=== PATIENT | male | born 1985 | race Caucasian/White ===

== ENCOUNTER 2020-01-01 01:26 | Day surgery (SDC) | payer OTHER, SELFPAY ==
[2019-12-16 10:39] VITALS: BMI 24.8
[2020-01-01] VITALS (7 sets, daily range): BP systolic 109–132; BP diastolic 54–87; PULSE 74–95; RESP 12–18; TEMP 36.1–36.5; O2SAT 98–100
--- NOTE | 2020-01-01 12:17 | WPDANESEPPF ---
Anes - Initial Pre Proc Eval Procedure: Operation Date: 01/01/20 13:30 Proposed Procedures p Excision and CO2 Laser Penile Condyloma - Kenji Mckeon MD Date/Time: 01/01/20 12:17 Surgeon: Kenji Mckeon MD Pre Op Diagnosis: Penile Condyloma Patient Data Age: 34 Gender: M Height: 5 ft 6 in Weight: 69.85 kg Allergies Allergy/AdvReac Type Severity Reaction Status Date / Time No Known Allergies Allergy Verified 12/16/19 10:40 Home Medications Medication Instructions Recorded Confirmed Type No Home Medications 12/16/19 12/16/19 History Patient hx anesthesia problems: none Family hx anesthesia problems: none Anes - Eval Final PreProcedure Day of Procedure 01/01/20 12:17 Patient weight: normal Heart: regular rate and rhythm Lungs: clear to auscultation Airway: Mallampati scale class II Neurological: alert and oriented Last oral intake: >/= 8 hours ASA classification: I Emergent: no Anesthetic plan: proceed Anesthesia type and monitoring: general LMA and standard monitoring Informed Consent: The patient's anesthetic plan and its attendant risks and benefits were discussed with the patient/family/POA. Questions were solicited and answers provided to the satisfaction of the patient/family/POA.
[2020-01-01] MEDS: LACTATED RINGERS 1,000 ML 30 ML IV CONT ×2 (12:30→16:23)
--- NOTE | 2020-01-01 12:52 | WPDHPUPDATE1 ---
History and Physical Update Update Date/Time: 01/01/20 12:52 History and Physical has been reviewed, including an updated exam of the patient. There are NO changes in the patient's condition. Risks, benefits, and alternatives have been discussed and questions answered. Patient agrees to proceed with procedure.
[2020-01-01] MEDS: ceFAZolin 2 GM/D5W 50 ML 2 GM/50 ML BAG IVPB (15:03)
--- NOTE | 2020-01-01 19:42 | OP_ITS ---
DATE OF PROCEDURE: 01/01/2020 POSTOPERATIVE DIAGNOSIS: Extensive penile and suprapubic condyloma. POSTOPERATIVE DIAGNOSIS: Extensive penile and suprapubic condyloma. PROCEDURE PERFORMED: Excision and CO2 laser of condyloma. INDICATION OF PROCEDURE: The patient is a very pleasant gentleman. He presented to the office with diagnosis of condyloma and he was found to have extensive disease with over 10 cm of total condyloma covering the shaft of the penis as well as the suprapubic area. Risks and alternatives discussed with the patient. Patient agreed to proceed with excision and lasering of condyloma. He understands risk of procedure including but not limited to, infection, bleeding, pain, injury to surrounding structures, recurrence, does have special cosmetic result, and need for additional operations, and complications from anesthesia. He agrees to proceed. DESCRIPTION OF PROCEDURE: Informed consent was obtained, the patient was taken to the operating room, given preoperative IV antibiotics. He was induced anesthesia. He was prepped and draped in a sterile fashion. We began with excision of the 3 largest lesions, each approximately 3 cm in size in the suprapubic and right lateral base of the penis. These were sharply excised and then using the CO2 laser, the edges and base of the excision site were cauterized, these pieces were sent to specimen. We then focused the laser on multiple other areas along the inferior and the left side of the penis including 3 lesions in the left side of the penis measuring approximately 2 cm each that were flatter than the other lesions. These lesions were destroyed with the CO2 laser. Once all area was completely debrided with the CO2 laser, we closed the 3 largest lesions that were excised with a deeper layer 3-0 Vicryl suture and a 4-0 chromic skin layer with interrupted sutures. We then reapproximated with 4-0 chromic, the left lateral-sided lesions with interrupted 4-0 chromic lesions. There was one area in the left mid shaft of the penis, though we did not reapproximate as it appeared to me that if we attempted to bring the edges of skin together this would cause significant tension to the skin. We again inspected carefully, there were no residual condyloma. Of note, this was the extensive disease, with multiple sites of condyloma as well as the size of the lesions which required extra surgical planning as well as complex reconstruction. The patient then had antibiotic ointment placed over the entire shaft of the penis and suprapubic area. Gauze dressing was placed in the scrotal portion, support was applied. The patient was awakened and taken to the recovery room in stable condition. FLUIDS: Per anesthesia. COMPLICATION: None. ESTIMATED BLOOD LOSS: Minimal. FOLLOWUP: The patient will follow up in the office in 2-4 weeks for a wound check. D I MT: Leandro SOLANO
== END 2020-01-01 17:47 | disposition home or self-care (01) ==
PROVIDERS: PCP Physician Assistant; Visit Provider Urology
PROC: (CPT 54065; principal; 2020-01-01 13:30)
DX: A63.0 Anogenital (venereal) warts (principal)
CPT/HCPCS: 54065; 88305; A9270; J0131; J0690; J1100; J2250; J2405; J2704; J3010; J7120

== ENCOUNTER 2024-08-12 15:43 | Emergency (ER) | payer OTHER, SELFPAY ==
[2024-08-12 15:52] VITALS: BP 130/79; PULSE 99; RESP 16; TEMP 37.2; O2SAT 97
--- NOTE | 2024-08-12 15:57 | ED.URI ---
HPI - URI/Sore Throat General Chief Complaint: Upper Respiratory Infection Stated Complaint: cough Time Seen by Provider: 08/12/24 15:58 Source: patient and RN notes reviewed Mode of arrival: ambulatory Limitations: no limitations History of Present Illness HPI Narrative: 39-year-old male presents concern for 2 week history of cough. Reports chest discomfort with coughing, he cough has gotten worse the last couple of days. He reports using cough drops. MD elicited complaint: cough and sore throat Related Data Allergies Allergy/AdvReac Type Severity Reaction Status Date / Time No Known Allergies Allergy Verified 08/12/24 15:57 Review of Systems Review of Systems: CONSTITUTIONAL: Denies malaise, chills, sweats, or fever. EYES: Denies visual changes, redness, or discharge. ENT: Denies rhinorrhea, congestion, sinus pain, otalgia and sore throat. CARDIOVASCULAR: Denies chest pain, palpitations, or edema. RESPIRATORY: Reports cough, chest congestion. Denies dyspnea. GASTROINTESTINAL: Denies abdominal pain, nausea, vomiting, diarrhea SKIN: Denies rash or itching. MUSCULOSKELETAL: Denies myalgia. NEUROLOGIC: Denies headache. All systems reviewed & are unremarkable except as noted in HPI and below PMFSH Family History Family History (System 02/24/21 @ 13:40 by Jayy Cintron) Mother Family history of sleep apnea Comments At time of signature, agree with nursing past medical, surgical, social and family history. There is no relevant family history pertinent to the presenting complaint Exam Narrative: GENERAL: Well-appearing, well-nourished, and in no acute distress. HEAD: Normocephalic EYES: PERRLA, conjunctivae clear ENT: Nares clear, turbinates edematous and erythematous, clear discharge. Mucous membranes moist. TM pearly avitia with dull light reflex bilaterally; no tragal tenderness. Oropharynx not erythematous without lesions. Tonsils not enlarged and without exudate, no drooling, no hoarseness, no trismus, uvula midline. NECK: Supple. No lymphadenopathy CHEST: Clear to auscultation, breath sounds equal. No wheezing, rhonchi, rales, or stridor. No respiratory distress, speaks in full sentences. HEART: Regular rate and rhythm. No murmur heard. SKIN: Warm, dry, no rash. NEURO: Alert and oriented x3. PSYCH: Normal mood and affect Course Course Emergency Course: Patient is aware of diagnosis, understands and agrees to treatment plan. Anticipatory guidance given. Patient agrees to follow-up as directed and is aware of reasons to seek care at the emergency department. Portions of this record may have been created with voice recognition software Level of Care: Express Care Visit Vital Signs Vital signs: Vital Signs Temperature 98.9 F 08/12/24 15:52 Pulse Rate 99 08/12/24 15:52 Respiratory Rate 16 08/12/24 15:52 Blood Pressure 130/79 08/12/24 15:52 Pulse Oximetry 97 08/12/24 15:52 Oxygen Delivery Room Air 08/12/24 15:52 Temperature 98.9 F 08/12/24 15:52 Pulse Rate 99 08/12/24 15:52 Respiratory Rate 16 08/12/24 15:52 Blood Pressure 130/79 08/12/24 15:52 Pulse Oximetry 97 08/12/24 15:52 Oxygen Delivery Room Air 08/12/24 15:52 Reviewed. MDM - URI/Sore Throat MDM Narrative Medical decision making narrative: Differential diagnosis considered: Reyes virus, strep pharyngitis, allergic rhinitis, upper respiratory tract infection, sinusitis, rhinosinusitis, nasopharyngitis. viral pharyngitis, otitis media, otitis externa, pneumonia, bronchitis, viral cough syndrome, viral syndrome, and influenza. Exam findings show no acute concerns or changes; patient is non-toxic appearing and is in no distress. Patient is appropriate for outpatient treatment and follow-up. Lab Data Attestation: I reviewed the patient's lab results. Critical Care Time Critical Care Time Critical Care Time: No Discharge Plan Discharge Clinical Impression: Acute lower respiratory infection
== END 2024-08-12 16:10 | disposition home or self-care (01) ==
PROVIDERS: Emergency Provider Nurse Practitioner; PCP Physician Assistant
DX: J22 Unspecified acute lower respiratory infection (principal)
CPT/HCPCS: 99213; G0463

== ENCOUNTER 2024-08-20 15:30 | Emergency (ER) | payer OTHER, SELFPAY ==
--- NOTE | ~2024-08-20 | XR_ITS ---
XR chest 2V Ordering provider: Shayna Damon APRN History: 39 years Male with . prod cough x 2 weeks smoker . Comparison: None. FINDINGS: MEDIASTINUM: The cardiac silhouette is not enlarged. LUNGS: No infiltrates, effusions or pneumothorax. Slightly prominent bronchovascular markings in the lower lobes. Early pneumonia in the left lower lob e pneumonia. Follow-up advised. OTHER: No free air under the diaphragm. IMPRESSION: Prominent bronchovascular markings more on the left side. Follow-up advised. Reviewed, dictated and finalized at location A.
[2024-08-20 15:40] VITALS: BP 140/77; PULSE 105; RESP 16; TEMP 36.5; O2SAT 98
[2024-08-20 15:43] VITALS: BP 140/77; PULSE 105; RESP 16; TEMP 36.5; O2SAT 98
--- NOTE | 2024-08-20 15:49 | ED.URI ---
HPI - URI/Sore Throat General Chief Complaint: Upper Respiratory Infection Stated Complaint: Cough Time Seen by Provider: 08/20/24 15:31 Source: patient Mode of arrival: ambulatory Limitations: no limitations History of Present Illness HPI Narrative: Patient is a 31-year-old male who presents with 3 weeks of cough. Patient was seen 08/12 and was given azithromycin and prednisone. Patient states it did nothing to help. Patient smokes a pack a day for the last 23 years. Denies any fever, chills, nausea, vomiting, diarrhea, sore throat, congestion. Related Data Allergies Allergy/AdvReac Type Severity Reaction Status Date / Time No Known Allergies Allergy Verified 08/20/24 15:34 Review of Systems Review of Systems: All systems reviewed & are unremarkable except as noted in HPI and below Constitutional: Constitutional: Denies body ache(s), Denies chills, Denies fatigue, Denies fever(s), Denies headache(s), Denies malaise and Denies weakness Eyes: Eyes: Denies blurry vision, Denies itchy eyes and Denies loss of vision ENT: Denies otalgia, Denies headache(s), Denies nasal congestion, Denies sinus pain and Denies sore throat Cardiovascular: Cardiovascular: Denies chest pain, Denies irregular heart rhythm and Denies dyspnea Respiratory: Respiratory: Reports cough and Denies dyspnea Gastrointestinal: Gastrointestinal: Denies abdominal pain, Denies diarrhea, Denies nausea and Denies vomiting Musculoskeletal: Musculoskeletal: Denies back pain, Denies myalgias and Denies arthralgias Integumentary/Breasts: Skin/Breast: Denies pruritus and Denies rash Neurologic: Denies headache(s), Denies loss of vision and Denies weakness Psychiatric: Psychiatric: Reports no additional psychiatric complaints Endocrine: Endocrine: Denies fatigue Allergic/Immunologic: Allergic/Immunologic: Denies itchy eyes PMFSH Family History Family History Mother Family history of sleep apnea Comments At time of signature, agree with nursing past medical, surgical, social and family history. There is no relevant family history pertinent to the presenting complaint. Exam Const: General: cooperative, healthy appearing, comfortable, no acute distress and well nourished Nutritional Appearance: well nourished Orientation/consciousness: patient oriented x3 Limitations: no limitations HENMT: Head: normal to inspection, normocephalic and atraumatic Ears: hearing grossly normal bilaterally, external ears normal, TM's normal bilaterally, EAC's normal and no periauricular adenopathy Face/Nose/Sinus: Normal external nose present, Normal nasal mucous membranes and turbinates present, normal facial exam, sinuses nontender and face symmetric Face and sinus: normal facial exam, sinuses nontender and face symmetric Mouth: Yes Normal oral and palatal mucosa present, Yes lip normal, Yes tongue normal, Yes Normal salivary glands and ducts present, Yes oropharynx normal and Yes moist mucous membranes Teeth and gingiva: dentition normal Throat: posterior oropharynx normal, tonsils normal and uvula midline Eyes: General: appearance normal, both eyes and all related structures Alignment and Position: alignment normal and position normal Periorbital: periorbital findings normal Eyelids: eyelids normal Pupils: Equal, round and reactive pupils present Neck: Neck: normal visual inspection, full ROM, no lymphadenopathy and supple Chest: Chest palpation & inspection: normal inspection of the chest and normal palpation of entire chest wall Resp: Effort & Inspection: normal respiratory effort and able to speak in complete sentences Auscultation: no crackles, no rales, no rhonchi, no wheezes and diminished lung sounds bilateral in the lower lung ferreira (L>R) Cardio: Rate: regular rate Rhythm: regular rhythm Heart sounds: S1 normal heart sound present and S2 normal heart sound present GI: Inspection: normal to inspection
== END 2024-08-20 16:36 | disposition home or self-care (01) ==
PROVIDERS: Emergency Provider Nurse Practitioner Family; PCP Physician Assistant
DX: J18.9 Pneumonia, unspecified organism (principal); F17.200 Nicotine dependence, unspecified, uncomplicated
CPT/HCPCS: 71046; 99213; G0463

== ENCOUNTER 2024-08-28 08:20 | Emergency (ER) | payer OTHER, SELFPAY ==
--- NOTE | ~2024-08-28 | XR_ITS ---
EXAMINATION: XR ribs RT 2V w CXR 2V DATE: 08/28/2024 09:16 INDICATION: Cough and posterior right lower rib pain. TECHNIQUE: PA and lateral views of the chest and 3 views of the right ribs were obtained. COMPARISON: Chest radiograph dated 08/30/24 FINDINGS: No rib fractures identified. No pneumothorax. No focal infiltrates, pleural effusion or pulmonary steffanie ma. Cardiomediastinal silhouette is normal. IMPRESSION: 1. No rib fracture or acute cardiopulmonary disease. Reviewed, dictated and finalized at location A.
[2024-08-28 08:37] VITALS: BP 128/92; PULSE 97; RESP 16; TEMP 36.3; O2SAT 97
[2024-08-28] MEDS: HYDROcodone/acetaminophen (*CRX) 5-325 MG TABLET 1 TAB PO (08:55)
--- NOTE | 2024-08-28 10:22 | ED.GENADULT ---
HPI - General Adult General Chief complaint: Unspecified Stated complaint: coughing and hurt his back Time Seen by Provider: 08/28/24 08:41 History of Present Illness HPI narrative: Patient is a 31-year-old male who presents ER with back pain. He has had a few weeks of cough but cough so hard today he felt something grabbing his back and felt a pop. It is located on the right side. No hemoptysis. No new dyspnea or worsening of cough. No fevers or chills. He has been on antibiotics previously. Related Data Allergies Allergy/AdvReac Type Severity Reaction Status Date / Time No Known Allergies Allergy Verified 08/20/24 15:34 Review of Systems Constitutional: Constitutional: Reports no additional constitutional complaints ENT: Reports system reviewed and no additional complaints, except as documented Cardiovascular: Cardiovascular: Reports no additional cardiovascular complaints Respiratory: Respiratory: Reports no additional respiratory complaints [facility] Family History Family History Mother Family history of sleep apnea Exam Narrative: GENERAL: Well-appearing, well-nourished, and in no acute distress. HEAD: Normocephalic, atraumatic. ENT: Mucous membranes moist. CHEST: Clear to auscultation. No respiratory distress. No clicking with deep breath. HEART: Regular rate and rhythm. Normal peripheral pulses. BACK: No midline tenderness at T/L-spine. There is some paraspinal muscle tenderness and discomfort over the lower posterior thoracic wall. EXTREMITIES: Normal range of motion. No edema. NEURO: Alert and oriented x3. PSYCH: Normal mood and affect. Course Course Emergency Course: No fracture. Muscle strain diagnosis. Discharge with anti-inflammatories and muscle relaxers. Roland for pain here. Vital Signs Vital signs: Vital Signs Temperature 97.4 F L 08/28/24 08:37 Pulse Rate 97 08/28/24 08:37 Respiratory Rate 16 08/28/24 08:37 Blood Pressure 128/92 H 08/28/24 08:37 Pulse Oximetry 97 08/28/24 08:37 Oxygen Delivery Room Air 08/28/24 08:37 Temperature 97.4 F L 08/28/24 08:37 Pulse Rate 98 08/28/24 10:31 Respiratory Rate 18 08/28/24 10:31 Blood Pressure 126/89 08/28/24 10:31 Pulse Oximetry 98 08/28/24 10:31 Oxygen Delivery Room Air 08/28/24 08:37 Medical Decision Making Vital Signs Vital Signs: Vital Signs Temperature 97.4 F L 08/28/24 08:37 Pulse Rate 97 08/28/24 08:37 Respiratory Rate 16 08/28/24 08:37 Blood Pressure 128/92 H 08/28/24 08:37 Pulse Oximetry 97 08/28/24 08:37 Oxygen Delivery Room Air 08/28/24 08:37 Temperature 97.4 F L 08/28/24 08:37 Pulse Rate 98 08/28/24 10:31 Respiratory Rate 18 08/28/24 10:31 Blood Pressure 126/89 08/28/24 10:31 Pulse Oximetry 98 08/28/24 10:31 Oxygen Delivery Room Air 08/28/24 08:37 Imaging Data Radiologist's impression: ITS Impressions Ribs w/Chest X-Ray 08/28/24 09:39 IMPRESSION: 1. No rib fracture or acute cardiopulmonary disease. Discharge Plan Discharge Clinical Impression: Muscle strain Patient Disposition: Home, Self-Care Condition: Stable Instructions: Muscle Strain (ED) Additional Instructions: You have strained a muscle from coughing. Anti-inflammatory medications as well as muscle relaxers. Follow up with her primary care doctor for further treatment and evaluation. Prescriptions: New cyclobenzaprine 10 mg tablet 10 mg PO TID PRN (Reason: muscle spasm) Qty: 20 0RF naproxen 375 mg tablet 375 mg PO BID Qty: 14 0RF No Action (DME) Aerochamber MV Spacer See Rx Instructions .Route Qty: 1 0RF Rx Instructions: As directed doxycycline monohydrate 100 mg tablet 100 mg PO BID 7 Days Qty: 14 0RF benzonatate 100 mg capsule 100 mg PO BID PRN (Reason: cough) Qty: 14 0RF albuterol sulfate 90 mcg/actuation HFA ae
[2024-08-28 10:31] VITALS: BP 126/89; PULSE 98; RESP 18; O2SAT 98
== END 2024-08-28 10:31 | disposition home or self-care (01) ==
PROVIDERS: Emergency Provider Emergency Medicine; PCP Physician Assistant
DX: S29.012A Strain of muscle and tendon of back wall of thorax, initial encounter (principal); X50.9XXA Other and unspecified overexertion or strenuous movements or postures, initial encounter
CPT/HCPCS: 71046; 71100; 99283; A9270

== ENCOUNTER → 2024-09-05 12:27 | Outpatient (CLI) | payer OTHER, SELFPAY ==
--- NOTE | ~2024-09-05 | XR_ITS ---
EXAMINATION: XR chest 2V DATE: 09/05/2024 12:40 INDICATION: Cough. TECHNIQUE: Frontal and lateral views of the chest were obtained. COMPARISON: Chest 2 views 08/28/2024 FINDINGS: There is no pneumonia, pleural effusion, or pneumothorax. The heart size is normal. IMPRESSION: 1. No acute cardiopulmonary disease. Reviewed, dictated and finalized at location A.
== END ==
LOC: EXPCRAD 12:29
PROVIDERS: PCP Physician Assistant; Visit Provider Physician Assistant
DX: R05.9 Cough, unspecified (principal)
CPT/HCPCS: 71046

== ENCOUNTER 2024-09-09 15:56 | Outpatient (CLI) | payer OTHER, SELFPAY ==
--- NOTE | ~2024-09-09 | CT_ITS ---
EXAMINATION:CT diagnostic chest w con DATE: 09/09/2024 16:29 INDICATION: Subacute cough. TECHNIQUE: Computed tomography (CT) of the chest was performed with 75 mL Omnipaque 350 intravenous c ontrast. Automated exposure control and iterative reconstruction technique were employed. The dose-le ngth product (DLP) was 394.83 mGy-cm. COMPARISON: Chest 2 views 09/05/2024 FINDINGS: The lungs demonstrate mild atelectasis. There is mucous plugging in left lower lobe and lef t upper lobe. No pleural effusion. The heart size is normal. No pericardial effusion. There is a 4 mm stone in right kidney. There is mild thoracic spondylosis. IMPRESSION: 1. Mucous plugging in left lung. Reviewed, dictated and finalized at location B.
== END 2024-09-09 15:57 | disposition home or self-care (01) ==
LOC: ANHIMG 15:57
PROVIDERS: PCP Physician Assistant; Visit Provider Physician Assistant
DX: R05.2 Subacute cough (principal)
CPT/HCPCS: 71260; Q9967

== ENCOUNTER 2024-09-09 18:22 | Emergency (ER) | payer OTHER, SELFPAY ==
[2024-09-09 19:07] VITALS: BP 119/78; PULSE 98; RESP 20; TEMP 36.3; O2SAT 97
--- NOTE | 2024-09-09 20:49 | PC.NURSE ---
Pt ripped off his wrist band with pt info on it and states to take me off the que and walked out at this time.
== END 2024-09-09 22:01 | disposition left against medical advice (07) ==
LOC: ANHED 21:47
PROVIDERS: PCP Physician Assistant
DX: R91.8 Other nonspecific abnormal finding of lung field (principal)
CPT/HCPCS: 99199

== ENCOUNTER 2024-09-11 09:20 | Emergency (ER) | payer OTHER, SELFPAY ==
--- NOTE | ~2024-09-11 | XR_ITS ---
EXAMINATION: XR chest 2V DATE: 09/11/2024 10:36 INDICATION: Recent pneumonia. Cough. TECHNIQUE: Frontal and lateral views of the chest were obtained. COMPARISON: Chest 2 views 09/05/2024, chest CT 09/09/2024 FINDINGS: There is no pneumonia, pleural effusion, or pneumothorax. The heart size is normal. IMPRESSION: 1. No acute cardiopulmonary disease. Reviewed, dictated and finalized at location B.
[2024-09-11 09:46] VITALS: BP 128/81; PULSE 96; RESP 12; TEMP 36.7; O2SAT 97
[2024-09-11 09:58] VITALS: PULSE 94; RESP 12
--- NOTE | 2024-09-11 10:14 | ED.GENADULT ---
HPI - General Adult General Chief complaint: Unspecified Stated complaint: MUCUS BUILD UP IN L LUNG SENT BY PCP. Time Seen by Provider: 09/11/24 09:47 History of Present Illness HPI narrative: Patient is a 31-year-old male who presents to the with complaints of cough and shortness of breath for the last month. Patient reports his cough started in July, he came in and had a chest x-ray which indicated he has pneumonia. He was put on doxycycline and completed his full course. Patient return to the ER 10 days ago with back pain. He was told his pneumonia had resolved and he had a muscle strain from continued coughing. Patient's primary care provider ordered a CT scan of patient's chest and it showed he had a mucous plug in his left lung. His primary care provider told him he needs to come into the ER for IV antibiotics. Patient reports he is experiencing less shortness of breath than he was 2 weeks ago. Patient denies chest pain or other signs / symptoms of illness. Related Data Allergies Allergy/AdvReac Type Severity Reaction Status Date / Time No Known Allergies Allergy Verified 09/11/24 09:50 Review of Systems Review of Systems: All systems reviewed & are unremarkable except as noted in HPI and below PMFSH Family History Family History Mother Family history of sleep apnea Exam Narrative: GENERAL: Well appearing, well-nourished, non-toxic, in no acute distress. HEAD: Normocephalic, atraumatic. NECK: Supple. No adenopathy, no masses. RESPIRATORY: Airway patent, respirations nonlabored. Positive wheezing in bilateral upper lobes. Clear lower lobes. CARDIOVASCULAR: Tachycardia, rubs, or gallops. Peripheral pulses 2+ and equal bilaterally. ABDOMINAL: Soft, nontender, nondistended, no hepatosplenomegaly. Normoactive BS. MUSCULOSKELETAL: Moves all extremities. Strength/ROM intact without gross deformities. SKIN: Warm, dry, normal color. No rashes. NEURO: A&O X3. Speech clear. Cranial nerves II-XII grossly intact. Steady gait. No ataxic movements. PSYCHIATRIC: Appropriate mood and affect. Normal interaction. Course Vital Signs Vital signs: Vital Signs Temperature 36.7 C 09/11/24 09:46 Pulse Rate 96 09/11/24 09:46 Respiratory Rate 12 09/11/24 09:46 Blood Pressure 128/81 09/11/24 09:46 Pulse Oximetry 97 09/11/24 09:46 Oxygen Delivery Room Air 09/11/24 09:46 Temperature 36.7 C 09/11/24 09:46 Pulse Rate 94 09/11/24 11:13 Respiratory Rate 15 09/11/24 11:13 Blood Pressure 118/69 09/11/24 11:13 Pulse Oximetry 97 09/11/24 11:13 Oxygen Delivery Room Air 09/11/24 09:46 Medical Decision Making MDM Narrative Medical decision making narrative: Patient is a 31-year-old male who presents to the with complaints of cough and shortness of breath for the last month. Patient reports his cough started in July, he came in and had a chest x-ray which indicated he has pneumonia. He was put on doxycycline and completed his full course. Patient return to the ER 10 days ago with back pain. He was told his pneumonia had resolved and he had a muscle strain from continued coughing. Patient's primary care provider ordered a CT scan of patient's chest and it showed he had a mucous plug in his left lung. His primary care provider told him he needs to come into the ER for IV antibiotics. Patient reports he is experiencing less shortness of breath than he was 2 weeks ago. Patient denies chest pain or other signs / symptoms of illness. Pt's physical examination was unremarkable besides mild tachycardia and mild upper lobe wheezing. He reports the Duo Neb did not help or worsen his breathing quality His bloodwork and chest x-ray were also unremarkable. Will contact pulmonology to determine their recommendation for patient. Pulmonology recommends that patient take [id number] Mucinex and use an albuterol inhaler every day. Patient can follow up with them outpatient in 2-3 weeks. Plan explained to patient and he agreed that was a reasonable plan. He verbalizes understanding and agreement with plan to discharge home. Differential Diagnosis Differential Diagnosis: pneumonia, chronic cough, mucous plug Vital Signs Vital Signs: Vital Signs Temperature 36.7 C 09/11/24 09:46 Pulse Rate 96 09/11/24 09:46 Respiratory Rate 12 09/11/24 09:46 Blood Pressure 128/81 09/11/24 09:46 Pulse Oximetry 97 09/11/24 09:46 Oxygen Delivery Room Air 09/11/24 09:46 Temperature 36.7 C 09/11/24 09:46 Pulse Rate 94 09/11/24 11:13 Respiratory Rate 15 09/11/24 11:13 Blood Pressure 118/69 09/11/24 11:13 Pulse Oximetry 97 09/11/24 11:13 Oxygen Delivery Room Air 09/11/24 09:46 Lab Data Lab results reviewed: Yes I reviewed the patient's lab results. 09/11/24 10:55 09/11/24 10:55 Labs: Lab Results 09/11/24 Range/Units 10:55 WBC 6.4 (4.5-10.0) K/mm3 RBC 4.54 L (4.6-6.20) M/mm3 Hgb 13.5 L (14.0-18.0) g/dL Hct 41.0 L (42.0-52.0) % MCV 90.3 (80-100) fl MCH 29.7 (26-34) pg MCHC 32.9 (32-36) g/dl RDW 13.2 (11.5-14.5) % Plt Count 340 (150-375) k/mm3 MPV 9.8 (7.4-10.4) fl Immature Gran % (Auto) 0.3 (0-0.5) % Neut % (Auto) 39.8 L (45.5-73.1) % Lymph % (Auto) 45.5 H (18.3-44.2) % [place] % (Auto) 7.0 (2.6-8.5) % Eos % (Auto) 6.6 H (0-4.4) % Baso % (Auto) 0.8 (0.2-1.2) % Lymph # (Auto) 2.91 (0.9-3.2) K/mm3 [place] # (Auto) 0.5 (0.1-0.6) K/mm3 Eos # (Auto) 0.4 H (0-0.3) K/mm3 Baso # (Auto) 0.1 (0.0-0.1) K/mm3 Abs Immat Gran (auto) 0.02 (0.00-0.031) K/mm3 Absolute Neuts (auto) 2.6 (1.3-6.7) K/mm3 Absolute Nucleated RBC 0.000 (0.0-0.012) K/mm3 Nucleated RBC % 0.0 (0.0-0.2) % PT 13.1 (11.1-14.7) Seconds INR 1.0 APTT 27.5 (22.3-36.8) Seconds Sodium 139 (137-145) mmol/L Potassium 4.2 (3.4-5.0) mmol/L Chloride 107 (98-107) mmol/L Carbon Dioxide 25 (22-30) mmol/L Anion Gap 7 (4-12) mmol/L BUN 18 (9-20) mg/dL Creatinine 0.90 (0.7-1.3) mg/dL Estim Creat Clear Calc 104 ml/min Estimated GFR > 60 (59 - ) Glucose 109 (65-110) mg/dL Lactic Acid 1.2 (0.7-2.0) mmol/L Calcium 9.4 (8.4-10.2) mg/dL Magnesium 2.2 (1.6-2.3) mg/dL Total Bilirubin 0.5 (0.2-1.3) mg/dL AST 31 (17-59) U/L ALT 43 (6-50) U/L Alkaline Phosphatase 111 (38-126) U/L Troponin I < 0.012 (0.000-0.034) ng/mL Total Protein 8.0 (6.3-8.2) g/dL Albumin 4.2 (3.5-5.1) g/dL Imaging Data Attestation: I personally reviewed and interpreted this imaging study as follows: Radiologist's impression: Impressions Chest X-Ray 09/11/24 10:40 IMPRESSION: 1. No acute cardiopulmonary disease. Discharge Plan Discharge Clinical Impression: Cough in adult patient, Wheezing Patient Disposition: Home, Self-Care Condition: Stable Instructions: Antibiotic Form, Viral Syndrome (ED) Additional Instructions: Please follow-up with pulmonology in 2-3 weeks. Take all medications as prescribed. Return to the ER with any worsening symptoms. Please follow-up with your primary care provider as needed. Prescriptions: No Action (DME) Aerochamber MV Spacer See Rx Instructions .Route Qty: 1 0RF Rx Instructions: As directed doxycycline monohydrate 100 mg tablet 100 mg PO BID 7 Days Qty: 14 0RF benzonatate 100 mg capsule 100 mg PO BID PRN (Reason: cough) Qty: 14 0RF albuterol sulfate 90 mcg/actuation HFA aerosol inhaler 2 puff inhalation QID PRN (Reason: shortness of breath or wheezing) Qty: 6.7 0RF cyclobenzaprine 10 mg tablet 10 mg PO TID PRN (Reason: muscle spasm) Qty: 20 0RF naproxen 375 mg tablet 375 mg PO BID Qty: 14 0RF Follow-up/Referrals: Mimi,EMETERIO Oliva [Primary Care Provider] - Time of Disposition: 12:00
[2024-09-11] MEDS: IPRATROPIUM 0.5 MG/ALBUTEROL SULFATE 2.5 MG AMPUL.NEB 3 ML 6 ML INHALATION (10:42)
[2024-09-11 10:43] VITALS: PULSE 90; RESP 16
[2024-09-11 10:59] VITALS: PULSE 92; RESP 20
[2024-09-11 11:07] LABS: Basophils Absolute Auto 0.1 K/mm3 (0.0-0.1); Basophils Percent Auto 0.8 % (0.2-1.2); Eosinophils Absolute Auto 0.4 K/mm3 (0-0.3); Eosinophils Percent Auto 6.6 % (0-4.4); Hemoglobin 13.5 g/dL (14.0-18.0); Immature Granulocyte Absolute 0.02 K/mm3 (0.00-0.031); Immature Granulocyte Percent A 0.3 % (0-0.5); Lymphocytes Absolute Auto 2.91 K/mm3 (0.9-3.2); Lymphocytes Percent Auto 45.5 % (18.3-44.2); Mean Corpuscular HGB Conc 32.9 g/dl (32-36); Mean Corpuscular Hemoglobin 29.7 pg (26-34); Mean Corpuscular Volume 90.3 fl (80-100); Mean Platelet Volume 9.8 fl (7.4-10.4); Monocytes Absolute Auto 0.5 K/mm3 (0.1-0.6); Neutrophils Absolute Auto 2.6 K/mm3 (1.3-6.7); Neutrophils Percent Auto 39.8 % (45.5-73.1); Platelet Count Result 340 k/mm3 (150-375); Red Blood Count 4.54 M/mm3 (4.6-6.20); Red Cell Distribution Width 13.2 % (11.5-14.5); White Blood Count 6.4 K/mm3 (4.5-10.0)
[2024-09-11] MEDS: methylPREDNISolone SOD SUCC 125 MG VIAL IV PUSH (11:11)
[2024-09-11] MEDS: SODIUM CHLORIDE 0.9% IV 1,000 ML 999 ML IV CONT (11:11)
[2024-09-11 11:13] VITALS: BP 118/69; PULSE 94; RESP 15; O2SAT 97
[2024-09-11 11:17] LABS: Alanine Aminotransferase 43 U/L (6-50); Albumin Level 4.2 g/dL (3.5-5.1); Alkaline Phosphatase 111 U/L (38-126); Anion Gap 7 mmol/L (4-12); Aspartate Amino Transferase 31 U/L (17-59); Bilirubin,Total 0.5 mg/dL (0.2-1.3); Blood Urea Nitrogen 18 mg/dL (9-20); Calcium 9.4 mg/dL (8.4-10.2); Carbon Dioxide 25 mmol/L (22-30); Chloride 107 mmol/L (98-107); Estimated CRCL calculation 104 ml/min; Estimated Glomerular Filt Rate > 60; Glucose 109 mg/dL (65-110); Lactic Acid Reflex 1.2 mmol/L (0.7-2.0); Magnesium 2.2 mg/dL (1.6-2.3); Potassium 4.2 mmol/L (3.4-5.0); Prothrombin Time 13.1 Seconds (11.1-14.7); Sodium 139 mmol/L (137-145)
[2024-09-11 11:18] LABS: Partial Thromboplastin Time 27.5 Seconds (22.3-36.8)
[2024-09-11 11:28] LABS: Troponin I < 0.012 ng/mL (0.000-0.034)
[2024-09-11 12:19] VITALS: BP 139/79; PULSE 97; RESP 18; O2SAT 96
== END 2024-09-11 12:20 | disposition home or self-care (01) ==
PROVIDERS: Emergency Provider Registered Nurse; PCP Physician Assistant
DX: R05.9 Cough, unspecified (principal); R06.2 Wheezing
CPT/HCPCS: 36415; 71046; 80053; 83605; 83735; 84484; 85025; 85610; 85730; 87040; 94640; 96361; 96374; 99284; J2919; J7030